=== PATIENT | female | born 1985 | race American Indian/Alaskan Native ===

== ENCOUNTER 2020-05-01 08:41 | Day surgery (SDC) | payer MEDICAID ==
[2020-05-01] MEDS ORDERED: Cyanocobalamin (Vitamin B12) 1,000 MCG/ML SDV IM ONE (10:00)
[2020-05-01] MEDS ORDERED: Lactated Ringers 1,000 ML IV SCH (10:00)
[2020-05-01] MEDS ORDERED: Propofol 200 MG/20 ML SDV ONE (10:01)
[2020-05-01] MEDS ORDERED: fentaNYL 100 MCG/2 ML SDV ONE (10:01)
[2020-05-01] MEDS ORDERED: Midazolam 1 MG/ML 2 ML SDV ONE (10:01)
[2020-05-01] MEDS ORDERED: Glycopyrrolate 0.2 MG/ML 2 ML SDV IVPUSH ONE (10:30)
[2020-05-01] MEDS ORDERED: MVI, Adult with Vitamin K 10 ML, Thiamine 200 MG, Chromium/Copper/Mang/Selen/Zn 1 ML in... IV ONE ×4 (11:00)
[2020-05-01] MEDS ORDERED: Famotidine 20 MG/2 ML SDV IVPUSH PRN (12:40)
[2020-05-01] MEDS ORDERED: Hydrocortisone Sodium Succinate 100 MG/2 ML SDV IVPUSH PRN (12:40)
[2020-05-01] MEDS ORDERED: diphenhydrAMINE 50 MG/ML SDV IVPUSH PRN (12:40)
[2020-05-01] MEDS ORDERED: Sodium Chloride 0.9% 1,000 ML IV SCH (13:00)
--- NOTE | 2020-05-07 07:17 | OR ---
DATE OF PROCEDURE: 05/01/2020 SURGEON: Nathan Deshpande MD PREOPERATIVE DIAGNOSIS: Weight regain status post Bhavesh-en-Y gastric bypass. 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 OPERATIVE PROCEDURE: Upper GI endoscopy with biopsies of gastric pouch for CLOtest. ANESTHESIA: IV sedation. INDICATION FOR PROCEDURE: This is a 34-year-old female presenting with some significant weight regain status post Bhavesh-en-Y gastric bypass with gastric bypass in 2013. Her preoperative weight was 309 pounds. She did get down into the upper 200 pounds at one point, a roughly 100-pound weight loss, but now has gradually regained weight and had a weight of 254 pounds. Plan is to proceed with upper GI endoscopy with an attempt to identify problems with the bypass. The potential risks of the procedure including bleeding and perforation were discussed, and the patient wishes to proceed. DETAILS OF PROCEDURE: The patient was taken to the operating room and placed in a left decubitus position. IV sedation was administered, after which the upper GI endoscope was passed orally through the esophagus into the gastric pouch, from there through the gastrojejunostomy roughly 20 cm into the Bhavesh limb. Pertinent findings included a very wide open gastrojejunostomy. The gastric pouch was fairly small, but there was a visible gastrogastric fistula, not quite allowing the scope to be passed through that area, with this being around 8 to 10 mm. This was associated with redness likely related to some bile reflux to that area, but otherwise no additional abnormalities were noted. Biopsies were obtained from the gastric pouch for CLOtest for H. pylori. Minimal bleeding from the biopsy site was seen. The procedure was then concluded. The patient appeared to be a good surgical candidate for revisional procedure which would amount to closing the gastrogastric fistula as well as tightening the gastrojejunostomy and concurrently revising the small bowel component to stomach more distal configuration. We will contact her insurance carrier regarding prior authorization. Nathan Deshpande MD /[id number]
== END 2020-05-01 14:20 | disposition home or self-care (01) ==
LOC: JP.SDS 08:41
PROVIDERS: ATTEND Surgery
DX: K31.6 Fistula of stomach and duodenum (principal); J45.909 Unspecified asthma, uncomplicated; Z98.84 Bariatric surgery status
CPT/HCPCS: 43239; 87081; J2250; J2704; J3010; J3411; J3420; J7030; J7050; J7120; Q0138